=== PATIENT | male | born 1985 | race African-American/Black ===

== ENCOUNTER 2016-10-29 14:22 | Emergency (ER) | payer OTHER ==
[~2016-10-29] VITALS: Ht 175.3 cm; Wt 70.3 kg
[2016-10-29] MEDS ORDERED: TESSALON PERLE100 MG PO (15:41)
[2016-10-29] MEDS ORDERED: IBUPROFEN 600600 M1 PO (15:45)
[2016-10-29 15:53] VITALS: BP 116/70
== END 2016-10-29 15:55 | disposition home or self-care (01) ==
LOC: ER 14:22
DX: J11.1 Influenza due to unidentified influenza virus with other respiratory manifestations (principal)